=== PATIENT | male | born 1955 | race Caucasian/White ===

== ENCOUNTER 2017-01-28 18:38 | Emergency (ER) | payer OTHER ==
--- NOTE | ~2017-01-28 | CR150 ---
[facility]. [facility] A Service of [facility] & [facility] RADIOLOGY TEXT RESULTS PATIENT: LILLY MONTESINOS LOCATION: SED : 55 UNIT #: [id number] AGE: [address]: Hiro Norton MD SEX: M ORDER DR: [id number] [place] [id number] E MR#: [id number] Acc #: [id number] NAME: LILLY MONTESINOS. : 1955 SEX: M STUDY DATE/TIME: 01/28/2017 20:22 UNIT: SED ROOM: STUDY DESCRIPTION: CR Hip Min 2 Views Lt Attending Physician: Hiro Norton M.D. Ordering Physician: Hiro Norton M.D. Primary Care Physician: Mariann Lucio A.P.R.N. MEDICAL IMAGING REPORT This report is preliminary unless electronic signature is present. EXAM Left hip, 2 views COMPARISON None INDICATIONS A 61-year-old male with left hip pain after falling at a restaurant tonight. FINDINGS There are minimal arterial calcifications in the proximal thighs. Minimal enthesopathy at the iliac crests. Left hip is anatomically aligned. There is mild enthesopathy at the left greater trochanter. No evidence of acute fracture. IMPRESSION No acute fracture or dislocation of the left hip. Dictated by... Regulo Pastrana M.D. THIS IS AN ELECTRONICALLY VERIFIED REPORT Regulo Pastrana M.D. at 02/03/2017 10:01 AM Manisha TD: 01/29/2017 04:42 JOB #: [id number] MEDICAL IMAGING REPORT Page 1 of 1
--- NOTE | ~2017-01-28 | CR229 ---
[facility] A Service [facility] RADIOLOGY TEXT RESULTS PATIENT: LILLY MONTESINOS LOCATION: SED : 55 UNIT #: [id number] AGE: [address]: Hiro Norton MD SEX: M ORDER DR: [id number] [place] [id number] E MR#: [id number] Acc #: [id number] NAME: LILLY MONTESINOS : 1955 SEX: M STUDY DATE/TIME: 01/28/2017 20:22 UNIT: SED ROOM: STUDY DESCRIPTION: CR Shoulder Min 2 View Lt Attending Physician: Hiro Norton M.D. Ordering Physician: Hiro Norton M.D. Primary Care Physician: Mariann Lucio A.P.R.N. MEDICAL IMAGING REPORT This report is preliminary unless electronic signature is present. EXAM Left shoulder, 3 views. COMPARISON None INDICATION 61-year-old male with left shoulder pain after falling at a restaurant tonight. FINDINGS Surgical anchors are noted in the left humeral head, most consistent with prior rotator cuff repair. Left shoulder is anatomically aligned. Degenerative facet disease is seen bilaterally in the lower cervical spine. No evidence of acute fracture. IMPRESSION 1. No acute fracture, dislocation, or significant degenerative change of the left shoulder. 2. Changes most consistent with a prior rotator cuff repair. Dictated by... Regulo Pastrana M.D. THIS IS AN ELECTRONICALLY VERIFIED REPORT Regulo Pastrana M.D. at 02/03/2017 10:01 AM PASQUALE/bora TD: 01/29/2017 04:46 JOB #: [id number] [facility] A Service [facility] RADIOLOGY TEXT RESULTS PATIENT: LILLY MONTESINOS LOCATION: SED : 55 UNIT #: [id number] AGE: [address]: Hiro Norton MD SEX: M ORDER DR: MEDICAL IMAGING REPORT Page 1 of 1
--- NOTE | ~2017-01-28 | CR58 ---
[facility]. [facility] A Service of [facility] & [facility] RADIOLOGY TEXT RESULTS PATIENT: LILLY MONTESINOS LOCATION: SED : 55 UNIT #: [id number] AGE: [address]: Hiro Norton MD SEX: M ORDER DR: [id number] [place] [address] [id number] E MR#: [id number] Acc #: [id number] NAME: LILLY MONTESINOS. : 1955 SEX: M STUDY DATE/TIME: 01/28/2017 20:22 UNIT: SED ROOM: STUDY DESCRIPTION: CR Cervical Spine 2 or 3 Views Attending Physician: Hiro Norton M.D. Ordering Physician: Hiro Norton M.D. Primary Care Physician: Mariann Lucio A.P.R.N. MEDICAL IMAGING REPORT This report is preliminary unless electronic signature is present. EXAM C spine 3 views HISTORY Fell at restaurant tonight neck pain. FINDINGS Three views of the cervical spine demonstrates no fracture or malalignment. Disc spaces maintained. Minimal facet arthropathy. Prevertebral soft tissues appear normal. Craniocervical and cervicothoracic junction appear normal. Atlantoaxial joint unremarkable. Left carotid vascular calcifications noted. IMPRESSION No acute findings. Dictated by... Yenny Diaz M.D. THIS IS AN ELECTRONICALLY VERIFIED REPORT Yenny Diaz M.D. at 01/29/2017 6:55 PM Letty TD: 01/29/2017 04:40 JOB #: [id number] MEDICAL IMAGING REPORT Page 1 of 1
[2017-01-28] MEDS ORDERED: XANAX1 MG PO (18:50)
[2017-01-28] MEDS ORDERED: CIMETIDINE400 MG PO (18:50)
[2017-01-28] MEDS ORDERED: LORCET HD 10-31 EACH PO (18:50)
[2017-01-28] MEDS ORDERED: CIALIS5 MG PO (18:51)
[2017-01-28] MEDS ORDERED: ATENOLOL50 MG PO (18:51)
[2017-01-28] MEDS ORDERED: ALBUTEROL17 GM INH (18:51)
[2017-01-28] MEDS ORDERED: ALBUTEROL2.5 MG/3 M (18:52)
[2017-01-28] MEDS ORDERED: FLONASE 0.05% N16 G1 (18:52)
[2017-01-28] MEDS ORDERED: NEURONTIN100 MG PO (18:52)
== END 2017-01-28 21:43 | disposition home or self-care (01) ==
LOC: SED 18:38
DX: S16.1XXA Strain of muscle, fascia and tendon at neck level, initial encounter (principal); S46.912A Strain of unspecified muscle, fascia and tendon at shoulder and upper arm level, left arm, initial encounter; S76.012A Strain of muscle, fascia and tendon of left hip, initial encounter; I10 Essential (primary) hypertension; Z88.5 Allergy status to narcotic agent; W01.0XXA Fall on same level from slipping, tripping and stumbling without subsequent striking against object, initial encounter; Y92.511 Restaurant or cafe as the place of occurrence of the external cause
CPT/HCPCS: 72040; 73030; 73502; 99283